=== PATIENT | male | born 1940 | race Caucasian/White ===

== ENCOUNTER 2023-09-10 08:02 | Day surgery (SDC) | payer MEDICARE, SELFPAY ==
--- NOTE | 2023-09-10 | PATH_ITS ---
[facility] Accession Number: [id number] No. of containers..03 Tissue . 01 Material submitted: . PART A: colon - CECUM PART B: colon - RANDOM BIOPSIES PART C: colon - TRANSVERSE . 01 Diagnosis: A. Cecum, Biopsy: Fragments of tubular adenoma and sessile serrated adenoma. . B. Random Colon, Biopsies: Lymphocytic colitis. Negative for granulomas, dysplasia, and malignancy. . C. Transverse Colon, Biopsies: Fragments of tubular adenoma and sessile serrated adenoma. [facility] 09/13/2023 1402 Local . 01 Electronically signed: . Marianne Huerta MD, Pathologist NPI- [id number] . 01 Gross description: . Part A: CECUM: Received in formalin are multiple fragment(s) of lemons, soft tissue measuring 0.1 x 0.1 x 0.1 cm to 0.7 x 0.7 x 0.6 cm submitted entirely in 1 cassette(s) Part B: RANDOM BIOPSIES: Received in formalin are 3 fragment(s) of lemons, soft tissue measuring 0.1 x 0.1 x 0.1 cm to 0.3 x 0.2 x 0.2 cm submitted entirely in 1 cassette(s) Part C: TRANSVERSE: Received in formalin are 3 fragment(s) of lemons, soft tissue measuring 0.1 x 0.1 x 0.1 cm to 0.4 x 0.2 x 0.2 cm submitted entirely in 1 cassette(s) /STEVE 09/12/2023 1944 Local . 01 Pathologist provided ICD-10: D12.0, D12.3, K52.89 . 01 CPT . 093896, 741234, 170438 Specimen Comment: A courtesy copy of this report has been sent to [phone] Performed at: 01 [facility] [address], [place], [place] [id number] MD [place] Frost MD Phone: [phone]
[2023-09-10 09:02] VITALS: BP 146/80; PULSE 83; RESP 16; TEMP 36.6; O2SAT 97; BMI 30.4
--- NOTE | 2023-09-10 09:10 | P.HP_ITS ---
History of Present Illness History of Present Illness Date Patient Seen: 09/10/23 Time Patient Seen: 09:11 Chief complaint: SDC Narrative: I reviewed my recent note. Diarrhea persists. He had some bleeding with the prep. He is off his Coumadin since . [facility] Medical History Hypercholesteremia Hypertension Atrial fibrillation Cataracts, bilateral Diarrhea Surgical History History of appendectomy Social History household members: spouse Smoking Status: Never smoker Meds Home Medications and Allergies Home Medications Medication Instructions Recorded Confirmed Type Metformin Hydrochloride 500 mg PO BID ##0 11/08/09 History (Glucophage) [ALLERTEC] 1 tab PO QDAY ##0 11/08/09 09/10/23 History Simvastatin (Zocor) 40 mg PO PM ##0 11/09/09 09/10/23 History atenolol 50 mg tablet 50 mg PO PM ##0 11/09/09 History metoprolol tartrate 100 mg tablet 100 mg PO DAILY 09/10/23 09/10/23 History pramipexole 0.125 mg tablet 0.125 - 0.25 mg PO ONCE PM 09/10/23 09/10/23 History telmisartan 20 mg tablet 20 mg PO BID 09/10/23 09/10/23 History Allergies Allergy/AdvReac Type Severity Reaction Status Date / Time No Known Drug Allergies Allergy Verified 09/10/23 08:51 Review of Systems Review of Systems ROS: Yes All systems reviewed with the patient and are negative except as otherwise documented Exam Vital Signs (past 8 hours): - 09/10/23 09:02 Temperature 97.9 F Pulse Rate 83 Respiratory Rate 16 Blood Pressure 146/80 H Pulse Oximetry 97 Oxygen Delivery Method Room Air Oxygen Delivery Method Room Air Const General: cooperative HENMT Head: normal to inspection Eyes General: appearance normal, both eyes and all related structures Neck Neck: normal visual inspection Chest Chest: normal inspection of the chest Resp Effort & Inspection: normal respiratory effort Cardio Rate: regular rate GI Inspection: normal to inspection Skin General: no rashes or lesions noted Neuro General: patient alert and patient awake Extrem General: normal to inspection and no pedal edema Psych Appearance: grossly normal Assessment & Plan Assessment & Plan narrative: 83-year-old with history of diarrhea for more than a year now. Diagnostic colonoscopy is pursued. Notably he had some bleeding with the prep.
--- NOTE | 2023-09-10 09:11 | PM.PREOP ---
Pre-operative Note Interval Note History & Physical reviewed/Exam performed by Physician: Yes Changes to H&P: No ASA Class (for procedural sedation): III
--- NOTE | 2023-09-10 10:32 | PM.OP.COLON ---
Operative Date/Time/Diagnoses Date of procedure: 09/10/23 Time of procedure: 10:32 Pre-op diagnosis: Diarrhea Post-op diagnosis: same Procedure & Clinicians Study performed: Colonoscopy with hot snare polypectomy cold snare polypectomy and random biopsies. Same procedure as scheduled: Yes Indications: Diarrhea Surgeon: Roshan Gupta Procedure Notes SCOAP/Timeout: Done Procedure in detail: After the risks and benefits were explained, written and verbal informed consent was obtained. The patient was brought into the procedure room and placed into the left lateral decubitus position. Please see anesthesia notes for sedation details. Digital rectal examination was accomplished. The scope was introduced into the patient and advanced under direct visualization to the cecum as identified by the appendiceal orifice and ileocecal valve. The scope was slowly withdrawn to carefully examine the mucosa for any defects or lesions. Comprehensive imaging was accomplished throughout the rectum including the dentate line. The colon was decompressed, the scope was then removed from the patient who tolerated the procedure well. Pediatric colonoscope Bowel prep adequate Scope withdrawal time: 24 minutes Sedation minutes: 38 Complications: none Impression: There was no evidence of proctitis or colitis throughout. Random colon biopsies were taken for exclusion of microscopic colitis. The terminal ileum was interrogated and appeared visually normal. There was grade 2 internal hemorrhoids. No active bleeding. There was a 5 mm polyp in the transverse removed with cold snare. There were 3 polyps in the cecum ranging in size from 7-10 mm. These were sessile. These were removed with hot snare. A 4th polyp just outside the cecum measuring perhaps 5 mm was removed with hot snare as well. All 4 were submitted together. Endoscopic diagnosis 1. Multiple colon polyps 2. Hemorrhoids Post-procedure Plan for aftercare: 1. Await histopathology. 2. Repeat colonoscopy will likely be suggested for 3 years. 3. Okay to resume Coumadin starting tomorrow. Disposition: PACU
[2023-09-10 10:35] VITALS: BP 87/40; PULSE 75; RESP 14; TEMP 36.6; O2SAT 96
[2023-09-10 10:36] VITALS: BP 100/51; PULSE 76
[2023-09-10 10:39] VITALS: BP 102/52; PULSE 78; RESP 15; O2SAT 96
[2023-09-10 10:45] VITALS: BP 102/59; PULSE 77; RESP 13; TEMP 36.8; O2SAT 97
[2023-09-10 10:46] VITALS: BP 112/57; PULSE 85; RESP 18; O2SAT 97
== END 2023-09-10 10:59 | disposition home or self-care (01) ==
PROVIDERS: PCP Family Medicine; Referring Provider Internal Medicine Gastroenterology; Visit Provider Internal Medicine Gastroenterology
PROC: 0DJD8ZZ Inspection of Lower Intestinal Tract, Via Natural or Artificial Opening Endoscopic (ICD-10-PCS; CPT 45378; principal; 2023-09-10 09:30)
DX: R19.7 Diarrhea, unspecified (principal); K64.8 Other hemorrhoids; D12.0 Benign neoplasm of cecum; D12.3 Benign neoplasm of transverse colon; K52.832 Lymphocytic colitis
CPT/HCPCS: 45385; 85610; J2704